=== PATIENT | female | born 1985 | race Caucasian/White ===

== ENCOUNTER 2018-11-20 21:39 | Emergency (ER) | payer BC, SELFPAY ==
[2018-11-20 21:45] VITALS: BP 123/82; PULSE 85; RESP 18; TEMP 37.4; O2SAT 97; BMI 20.7
--- NOTE | 2018-11-20 22:18 | HMH.EDSKAF ---
ED Disposition Clinical Impression: Cellulitis Qualifiers: Site of cellulitis: face Qualified Code(s): L03.211 - Cellulitis of face Disposition: Home, Self-Care Condition on Discharge: Good Instructions: Cellulitis Additional Instructions: use meds and see pcp for follow up Prescriptions: Sulfamethoxazole/Trimethoprim [Bactrim DS tablet] 1 each PO BID #14 tab cephALEXin [Keflex 500mg Cap] 500 mg PO TID #30 cap Referrals: Viet Rosado [Primary Care Provider] - - Critical Care Critical Care Time: No Attestation: On , the high probability of a clinically significant, sudden or life threatening deterioration of the following system(s) required my full and direct attention, intervention and personal management. The time I documented below is in addition to time spent performing reported procedures but includes the following listed in this critical care notation. Medical Decision Making - Medical Records Medical records reviewed: Yes: I reviewed the patient's medical records. - [place] Inquiry Pt receiving controlled substance: No Vital Signs: 11/20/18 21:45 Temperature 99.4 F Temperature Source Oral Pulse Rate [Right Radial] 85 Respiratory Rate 18 Blood Pressure [Right Arm] 123/82 Blood Pressure Mean [Right Arm] 95 02 Sat by Pulse Oximetry 97 Skin/Abscess/FB HPI - General Chief complaint: Skin/Abscess/Foreign Body Stated complaint: Left size of face swollen Time Seen by Provider: 11/20/18 22:18 Mode of Arrival: Ambulatory Source of Information: Patient Limitations: No Limitations Description of Symptoms (Recalled from ER Triage Doc. by RN): pt states that she squeezed a bump a few days ago and now her lip and left face is swelling. - History of Present Illness HPI narrative: over the last few days has swelling tender swollen lt upper lip - no diabetes MD complaint: abscess/boil Onset (ago): day(s) Tetanus up to date: unsure Location: face Severity: moderate Associated symptoms: denies other symptoms Treatments prior to arrival: attempted to drain pus at home - Related Data Previous Rx's Medication Instructions Recorded Sulfamethoxazole/Trimethoprim 1 each PO BID #14 tab 11/20/18 [Bactrim DS tablet] cephALEXin [Keflex 500mg Cap] 500 mg PO TID #30 cap 11/20/18 Allergies Allergy/AdvReac Type Severity Reaction Status Date / Time buspirone [From BuSpar] Allergy Verified 11/20/18 21:49 paroxetine [From Paxil] Allergy Verified 11/20/18 21:49 [facility] History - Hepatitis A Screen Drug use history?: Yes High risk sexual behaviors?: No History of sexually transmitted infection?: No Currently employed?: No Childcare worker?: No Do you have indoor plumbing?: Yes Do you have electricity?: Yes Attestation statement:: This patient has been screened for Hepatitis A risk factors. I have reviewed the patient's past medical history: Yes Medical History: Denies:: Cancer, Diabetes Mellitus Type 1, Diabetes Mellitus Type 2, MRSA Amputation: No Fractures: No - Social History Smoking Status: Current every day smoker # Packs/Day (cigarettes): 1 Alcohol Intake: former Substance Use Type: heroin, amphetamines Occupational Status: unemployed - Psychiatric History Expresses thoughts of harming self/others: None Suicide Plan Description: No Plan ROS Obtained: Yes All systems reviewed & no additional complaints - Constitutional Constitutional: Denies fever(s) - Eyes Eyes: Denies change in vision - ENT Ears, Nose, Mouth, and Throat: Denies sore throat - Cardiovascular Cardiovascular: Denies chest pain - Respiratory Respiratory: No cough - Gastrointestinal Gastrointestingal: Denies: abdominal pain - Genitourinary Female Genitourinary: Denies hematuria - Musculoskeletal Musculoskeletal: Denies joint pain - Integumentary/Breasts Skin/Breast: Reports boil, Reports other (indurated lt upper lip ) - Neurologic Neurologic: Denies convulsions, Denies headache(s)
--- NOTE | 2018-11-20 22:23 | ED_ITS ---
ED Disposition Clinical Impression: Cellulitis Qualifiers: Site of cellulitis: face Qualified Code(s): L03.211 - Cellulitis of face Disposition: Home, Self-Care Condition on Discharge: Good Instructions: Cellulitis Additional Instructions: use meds and see pcp for follow up Prescriptions: Sulfamethoxazole/Trimethoprim [Bactrim DS tablet] 1 each PO BID #14 tab cephALEXin [Keflex 500mg Cap] 500 mg PO TID #30 cap Referrals: Viet Rosado [Primary Care Provider] - - Critical Care Critical Care Time: No Attestation: On , the high probability of a clinically significant, sudden or life threatening deterioration of the following system(s) required my full and direct attention, intervention and personal management. The time I documented below is in addition to time spent performing reported procedures but includes the following listed in this critical care notation. Medical Decision Making - Medical Records Medical records reviewed: Yes: I reviewed the patient's medical records. - [place] Inquiry Pt receiving controlled substance: No Vital Signs: 11/20/18 21:45 Temperature 99.4 F Temperature Source Oral Pulse Rate [Right Radial] 85 Respiratory Rate 18 Blood Pressure [Right Arm] 123/82 Blood Pressure Mean [Right Arm] 95 02 Sat by Pulse Oximetry 97 Skin/Abscess/FB HPI - General Chief complaint: Skin/Abscess/Foreign Body Stated complaint: Left size of face swollen Time Seen by Provider: 11/20/18 22:18 Mode of Arrival: Ambulatory Source of Information: Patient Limitations: No Limitations Description of Symptoms (Recalled from ER Triage Doc. by RN): pt states that she squeezed a bump a few days ago and now her lip and left face is swelling. - History of Present Illness HPI narrative: over the last few days has swelling tender swollen lt upper lip - no diabetes MD complaint: abscess/boil Onset (ago): day(s) Tetanus up to date: unsure Location: face Severity: moderate Associated symptoms: denies other symptoms Treatments prior to arrival: attempted to drain pus at home - Related Data Previous Rx's Medication Instructions Recorded Sulfamethoxazole/Trimethoprim 1 each PO BID #14 tab 11/20/18 [Bactrim DS tablet] cephALEXin [Keflex 500mg Cap] 500 mg PO TID #30 cap 11/20/18 Allergies Allergy/AdvReac Type Severity Reaction Status Date / Time buspirone [From BuSpar] Allergy Verified 11/20/18 21:49 paroxetine [From Paxil] Allergy Verified 11/20/18 21:49 [facility] History - Hepatitis A Screen Drug use history?: Yes High risk sexual behaviors?: No History of sexually transmitted infection?: No Currently employed?: No Childcare worker?: No Do you have indoor plumbing?: Yes Do you have electricity?: Yes Attestation statement:: This patient has been screened for Hepatitis A risk factors. I have reviewed the patient's past medical history: Yes Medical History: Denies:: Cancer, Diabetes Mellitus Type 1, Diabetes Mellitus Type 2, MRSA Amputation: No Fractures: No - Social History Smoking Status: Current every day smoker # Packs/Day (cigarettes): 1 Alcohol Intake: former Substance Use Type: heroin, amphetamines Occupational Status: unemployed - Psychiatric History Expresses
[2018-11-20 22:30] VITALS: BP 134/79; PULSE 89; RESP 16; TEMP 36.8; O2SAT 100
== END 2018-11-20 22:34 | disposition home or self-care (01) ==
PROVIDERS: Emergency Provider Emergency Medicine; PCP Pediatrics
DX: L03.211 Cellulitis of face (principal); F41.8 Other specified anxiety disorders; E78.5 Hyperlipidemia, unspecified; F17.210 Nicotine dependence, cigarettes, uncomplicated
CPT/HCPCS: 87070; 87077; 87186; 87205; 96372; 99282